=== PATIENT | female | born 1965 | race Caucasian/White ===

== ENCOUNTER → 2017-01-29 | Outpatient (CLI) | payer BC ==
[~2017-01-29] MED LIST: CVS20TAB PO; LEVO125T3 PO; LORTA5 PO; RANI150T PO; Z.0.BCPILL PO
--- NOTE | 2017-01-30 13:18 | TR ---
Date Performed: 01/29/2017 Time Performed: 12:24:36 DOCTOR: Ab Holder DRUG LIST: CLINICAL HISTORY: REASON FOR TEST: REASON FOR ENDING: OBSERVATION: CONCLUSION: Shun protocol completed. Stopped sec to reaching target heart rate and leg fatigue. Maximum JW=420 Target HR Achieved=86.0% Total Exercise Time=5:15. No reprod chest pain. No ectopy. S T depression inferior leads at peak with rapidly upsloping ST segments. Low voltage in anterior/later al leads. Good exercise tolerance. Normal bp response. ST segments normalized early in recovery. Low probability of ischemia. COMMENTS:
== END ==
LOC: HCAV 12:05
PROVIDERS: ATTEND Family Medicine
DX: R07.9 Chest pain, unspecified (principal)
CPT/HCPCS: 93017

== ENCOUNTER 2017-04-19 04:46 | Emergency (ER) | payer BC ==
[~2017-04-19] VITALS: Ht 162.6 cm; Wt 92.7 kg
[2017-04-19] MEDS ORDERED: GADODIAMIDE PF 287 MG/ML 20 ML VIAL (for RAD MRI) IVCONTRAST ONE (04:47)
[2017-04-19 04:56] VITALS: BP 131/73; PULSE 73; RESP 16; TEMP 98.2; O2SAT 97
[2017-04-19 05:15] VITALS: BP 116/69; PULSE 70; RESP 18; TEMP 98.2; O2SAT 96
[2017-04-19] MEDS ORDERED: LEVO50TA4 PO (05:15)
[2017-04-19] MEDS ORDERED: SODIUM CHLORIDE 0.9% FLUSH 10 ML FLUSH IVF PRN (05:45)
[2017-04-19 05:51] VITALS: RESP 18; O2SAT 97
[2017-04-19 05:52] LABS: AUTOMATED NEUTROPHIL # 6.2 TH/MM3 (1.8-7.7); BASOPHIL # 0.1 TH/MM3 (0-0.2); BASOPHIL % 0.9 % (0.0-2.0); EOSINOPHIL # 0.3 TH/MM3 (0-0.4); EOSINOPHIL % 3.2 % (0.0-4.0); HEMATOCRIT 39.6 % (35.0-46.0); HEMO FLAGS DIFF FINAL; LYMPH % 26.6 % (9.0-44.0); LYMPHOCYTE # 2.6 TH/MM3 (1.0-4.8); MEAN CELL VOLUME 86.7 FL (80.0-100.0); MEAN CORPUSCULAR HEMOGLOBIN 29.5 PG (27.0-34.0); MEAN CORPUSCULAR HGB CONC 34.1 % (32.0-36.0); MONO % 6.8 % (0.0-8.0); NEUT % 62.5 % (16.0-70.0); PLATELET COUNT 316 TH/MM3 (150-450); RED BLOOD COUNT 4.57 MIL/MM3 (4.00-5.30); RED CELL DISTRIBUTION WIDTH 12.2 % (11.6-17.2); WHITE BLOOD COUNT 9.9 TH/MM3 (4.0-11.0)
--- NOTE | 2017-04-19 05:57 | PD ---
HPI Chief Complaint: Headache Time Seen by Provider: 05:32 Travel History International Travel<30 days: No Contact w/Intl Traveler<30days: No Traveled to known affect area: No History of Present Illness HPI 52-year-old female presents to the emergency department by private transportation the care of her spouse for complaint of feeling jitteriness times one week and blurred and double vision with headache 3 days. Patient's had brief nausea but no vomiting. Patient's had no focal upper extremity or lower extremity numbness tingling or weakness. Head no ataxia of gait. Patient rates headache 5/10 intensity. Patient has taken Excedrin headache and ibuprofen without symptom relief. Patient recently underwent stress test that was reportedly "normal". Patient states she hasn't felt well since the stress test. Patient denies personal history of hypertension dyslipidemia diabetes tobaccoism or headaches. No reported family history premature onset heart disease. Patient does not report family history of aneurysm or CVA/TIA. Patient states that she was concerned that she was having a TIA prior to her stress test because she had numbness of the right side of the face that resolved spontaneously. Patient denies any peripheral vision loss. Patient's had no chest pain no shortness of breath no palpitations no sweats no vomiting and no referred neck jaw back shoulder or arm pain. Patient's had no recent injury or fall. Patient does not wear corrective lenses. Patient's had no recent febrile illness or respiratory illness. Patient states that she oftentimes feels jittery primarily at night when she is laying down and resting symptoms does not seem to be as prevalent when she is active or during the day. [facility] Past Medical History Narrative Medical Thyroid disease GERD cholecystectomy social alcohol use nursing notes reviewed Diminished Hearing: No GERD: Yes Immunizations Current: Yes Thyroid Disease: Yes Tetanus Vaccination: Unknown Influenza Vaccination: Yes ?: Unknown Menopausal: Yes Past Surgical History Section: Yes (X 2 IN 1989 AND 1990) Cholecystectomy: Yes (2014) Social History Alcohol Use: Yes (social) Tobacco Use: No Substance Use: No Allergies-Medications (Allergen,Severity, Reaction): Coded Allergies: No Known Allergies (Unverified , 04/19/17) Reported Meds & Prescriptions Reported Meds & Active Scripts Active Reported Levothyroxine (Levothyroxine Sodium) 50 Mcg Tab 50 Mcg PO DAILY Review of Systems Except as stated in HPI: all other systems reviewed are Neg General / Constitutional: No: Fever Eyes: Positive: Diploplia, Blurred Vision HENT: Positive: Headaches, No: Neck Pain Cardiovascular: No: Chest Pain or Discomfort, Palpitations, Diaphoresis, Syncope Respiratory: No: Shortness of Breath Gastrointestinal: Positive: Nausea, No: Vomiting, Abdominal Pain Genitourinary: No: Flank Pain Musculoskeletal: Positive: Weakness, No: Myalgias, Arthralgias Skin: No Rash Neurologic: Positive: Weakness Psychiatric: Positive: Anxiety Endocrine: No: Heat Intolerance Hematologic/Lymphatic: No: Easy Bruising Physical Exam Narrative GENERAL: Well-developed well-nourished female in no acute distress no respiratory distress SKIN: Warm and dry. HEAD: Atraumatic. Normocephalic. EYES: Pupils equal and round. Extraocular muscles intact. No papilledema. No scleral icterus. No injection or drainage. ENT: No nasal bleeding or discharge. Mucous membranes pink and moist. NECK: Trachea midline. No JVD. CARDIOVASCULAR: Regular rate and rhythm. RESPIRATORY: No accessory muscle use. Clear to auscultation. Breath sounds equal bilaterally. GASTROINTESTINAL: Abdomen soft, non-tender, nondistended. Hepatic and splenic margins not palpable. MUSCULOSKELETAL: Extremities without clubbing, cyanosis, or edema. No obvious deformities. NEUROLOGICAL: Awake and alert. No obvious cranial nerve deficits. Motor grossly within normal limits. Five out of 5 muscle strength in the arms and legs. Sensory exam intact. DTRs 2+ equal. No limb ataxia. No pronator drift. Normal speech. PSYCHIATRIC: Appropriate mood and affect; insight and judgment normal. Data Data Last Documented VS Vital Signs Date Time Temp Pulse Resp B/P (MAP) Pulse Ox O2 Delivery O2 Flow Rate FiO2 04/19/17 06:00 18 18 107/70 (82) 70 20 118/77 (91) 71 116/73 (87) 04/19/17 05:51 97 Room Air 04/19/17 05:15 98.2 Orders Orders Electrocardiogram (04/19/17 05:32) Prothrombin Time / Inr (Pt) (04/19/17 05:32) Act Partial Throm Time (Ptt) (04/19/17 05:32) Complete Blood Count With Diff (04/19/17 05:32) Basic Metabolic Panel (Bmp) (04/19/17 05:32) Creatine Kinase (Cpk) (04/19/17 05:32) Troponin I (04/19/17 05:32) Ct Brain W/O Iv Contrast(Rout) (04/19/17 05:32) Ecg Monitoring (04/19/17 05:32) Iv Access Insert/Monitor (04/19/17 05:32) Oximetry (04/19/17 05:32) Blood Glucose (04/19/17 05:32) Sodium Chloride 0.9% Flush (Ns Flush) (04/19/17 05:45) Orthostatic Vital Signs (04/19/17 05:32) Thyroid Stimulating Hormone (04/19/17 05:49) Mri Brain W&W/O Contrast (04/19/17 ) Mra Brain W/O Contrast (Cow) (04/19/17 ) Free Thyroxine (T4) (04/19/17 06:43) Ondansetron Inj (Zofran Inj) (04/19/17 07:00) Sodium Chlor 0.9% 1000 Ml Inj (Ns 1000 M (04/19/17 07:00) Hydromorphone Pf Inj (Dilaudid Pf Inj) (04/19/17 07:00) Protein Corrected Calcium(Pcc) (04/19/17 05:46) Labs Laboratory Tests Test 04/19/17 05:46 White Blood Count 9.9 TH/MM3 Red Blood Count 4.57 MIL/MM3 Hemoglobin 13.5 GM/DL Hematocrit 39.6 % Mean Corpuscular Volume 86.7 FL Mean Corpuscular Hemoglobin 29.5 PG Mean Corpuscular Hemoglobin Concent 34.1 % Red Cell Distribution Width 12.2 % Platelet Count 316 TH/MM3 Mean Platelet Volume 7.6 FL Neutrophils (%) (Auto) 62.5 % Lymphocytes (%) (Auto) 26.6 % Monocytes (%) (Auto) 6.8 % Eosinophils (%) (Auto) 3.2 % Basophils (%) (Auto) 0.9 % Neutrophils # (Auto) 6.2 TH/MM3 Lymphocytes # (Auto) 2.6 TH/MM3 Monocytes # (Auto) 0.7 TH/MM3 Eosinophils # (Auto) 0.3 TH/MM3 Basophils # (Auto) 0.1 TH/MM3 CBC Comment DIFF FINAL Differential Comment Prothrombin Time 10.0 SEC Prothromb Time International Ratio 0.9 RATIO Activated Partial Thromboplast Time 26.4 SEC Blood Urea Nitrogen 15 MG/DL Creatinine 0.80 MG/DL Random Glucose 88 MG/DL Total Protein 6.9 GM/DL Calcium Level 7.9 MG/DL Sodium Level 140 MEQ/L Potassium Level 4.1 MEQ/L Chloride Level 110 MEQ/L Carbon Dioxide Level 23.9 MEQ/L Anion Gap 6 MEQ/L Estimat Glomerular Filtration Rate 75 ML/MIN Protein Corrected Calcium 8.1 MG/DL Total Creatine Kinase 74 U/L Troponin I LESS THAN 0.02 NG/ML Thyroid Stimulating Hormone 3rd Gen 4.340 uIU/ML MDM Medical Decision Making Medical Screen Exam Complete: Yes Emergency Medical Condition: Yes Medical Record Reviewed: Yes Interpretation(s) EKG: Sinus rhythm rate 70 no acute injury pattern or ST elevation occasional PAC Differential Diagnosis headache, migraine, vertigo, CVA, TIA, thyroid dysfunction, mass, normal pressure hydrocephalus, diabetes Narrative Course IV access obtained specimens collected and sent for resulting EKG performed shows sinus rhythm rate [address] elevation or injury pattern noted rare PAC CBC basic metabolic panel and cardiac enzymes found to be in normal range except for calcium of 7.9 and also noted to have mildly elevated TSH with known history of hypothyroidism; protein corrected calcium ordered; CT brain noncontrast reveals no acute abnormality in view of patient's complaint of dizziness headache and visual disturbance/diplopia will proceed with MRI and MRA of the brain. Patient administered normal saline at 1 25 cc an hour as maintenance fluids along with Zofran 4 mg IV and Dilaudid 0.2 mg IV for complaint of 5/10 headache. @ 0700 care signed over to AM Physician, Mirta Anderson MD Apr 19, 2017 05:57
[2017-04-19 06:00] VITALS: BP_SYST 107; BP_SYST 116; BP_SYST 118; BP_DIAS 70; BP_DIAS 73; BP_DIAS 77; RESP 18; RESP 20
[2017-04-19 06:02] LABS: CHLORIDE 110 MEQ/L (98-107); POTASSIUM 4.1 MEQ/L (3.5-5.1); SODIUM (NA) 140 MEQ/L (136-145)
[2017-04-19 06:04] LABS: APTT (PATIENT) 26.4 SEC (24.3-30.1); INTERNATIONAL NORMALIZED RATIO 0.9 RATIO
[2017-04-19 06:05] LABS: ANION GAP 6 MEQ/L (5-15); BICARBONATE 23.9 MEQ/L (21.0-32.0); BLOOD UREA NITROGEN 15 MG/DL (7-18)
[2017-04-19 06:08] LABS: GLOMERULAR FILTRATION RATE 75 ML/MIN (>89)
[2017-04-19 06:17] LABS: CREATINE KINASE 74 U/L (26-192)
--- NOTE | 2017-04-19 06:39 | RADRPT ---
EXAM DATE/TIME: 04/19/2017 06:13 [facility] COMPARISON: No previous studies available for comparison. INDICATIONS : Blurred vision, dizziness,with headaches X 3days. RADIATION DOSE: 59.50 CTDIvol (mGy) MEDICAL HISTORY : None SURGICAL HISTORY : None. ENCOUNTER: Initial ACUITY: 3 days PAIN SCALE: 5/10 LOCATION: cranial TECHNIQUE: Multiple contiguous axial images were obtained of the head. Using automated exposure control and adj ustment of the mA and/or kV according to patient size, radiation dose was kept as low as reasonably a chievable to obtain optimal diagnostic quality images. DICOM format image data is available electro nically for review and comparison. FINDINGS: CEREBRUM: The ventricles are normal for age. No evidence of midline shift, mass lesion, hemorrhage or acute in farction. No extra-axial fluid collections are seen. POSTERIOR FOSSA: The cerebellum and brainstem are intact. The 4th ventricle is midline. The cerebellopontine angle i s unremarkable. EXTRACRANIAL: The visualized portion of the orbits is intact. SKULL: The calvaria is intact. No evidence of skull fracture. CONCLUSION: Negative noncontrast CT brain. Khang Garcia MD on April 19, 2017 at 6:32 Board Certified Radiologist. This report was verified electronically.
[2017-04-19] MEDS ORDERED: HYDROmorphone HCL PF 1 MG/ML VIAL IV PUSH ONE (07:00)
[2017-04-19] MEDS ORDERED: ONDANSETRON HCL 4 MG/2 ML VIAL IV PUSH ONE (07:00)
[2017-04-19] MEDS ORDERED: SODIUM CHLOR 0.9% 1000 ML INJ 1,000 ML IV SCH (07:00)
[2017-04-19 07:13] LABS: CALCIUM-PROTEIN CORRECTED 8.1 MG/DL (8.5-10.1)
--- NOTE | 2017-04-19 07:36 | PD ---
Physical Exam Date Seen by Provider: Apr 19, 2017 Data Data Last Documented VS Vital Signs Date Time Temp Pulse Resp B/P (MAP) Pulse Ox O2 Delivery O2 Flow Rate FiO2 04/19/17 07:43 18 04/19/17 06:00 18 107/70 (82) 70 118/77 (91) 71 116/73 (87) 04/19/17 05:51 97 Room Air 04/19/17 05:15 98.2 Orders Orders Electrocardiogram (04/19/17 05:32) Prothrombin Time / Inr (Pt) (04/19/17 05:32) Act Partial Throm Time (Ptt) (04/19/17 05:32) Complete Blood Count With Diff (04/19/17 05:32) Basic Metabolic Panel (Bmp) (04/19/17 05:32) Creatine Kinase (Cpk) (04/19/17 05:32) Troponin I (04/19/17 05:32) Ct Brain W/O Iv Contrast(Rout) (04/19/17 05:32) Ecg Monitoring (04/19/17 05:32) Iv Access Insert/Monitor (04/19/17 05:32) Oximetry (04/19/17 05:32) Blood Glucose (04/19/17 05:32) Sodium Chloride 0.9% Flush (Ns Flush) (04/19/17 05:45) Orthostatic Vital Signs (04/19/17 05:32) Thyroid Stimulating Hormone (04/19/17 05:49) Mri Brain W&W/O Contrast (04/19/17 ) Mra Brain W/O Contrast (Cow) (04/19/17 ) Free Thyroxine (T4) (04/19/17 06:43) Ondansetron Inj (Zofran Inj) (04/19/17 07:00) Sodium Chlor 0.9% 1000 Ml Inj (Ns 1000 M (04/19/17 07:00) Hydromorphone Pf Inj (Dilaudid Pf Inj) (04/19/17 07:00) Protein Corrected Calcium(Pcc) (04/19/17 05:46) Gadodiamide Pf Inj (Omniscan Pf Inj) (04/19/17 04:47) Labs Laboratory Tests Test 04/19/17 05:46 White Blood Count 9.9 TH/MM3 Red Blood Count 4.57 MIL/MM3 Hemoglobin 13.5 GM/DL Hematocrit 39.6 % Mean Corpuscular Volume 86.7 FL Mean Corpuscular Hemoglobin 29.5 PG Mean Corpuscular Hemoglobin Concent 34.1 % Red Cell Distribution Width 12.2 % Platelet Count 316 TH/MM3 Mean Platelet Volume 7.6 FL Neutrophils (%) (Auto) 62.5 % Lymphocytes (%) (Auto) 26.6 % Monocytes (%) (Auto) 6.8 % Eosinophils (%) (Auto) 3.2 % Basophils (%) (Auto) 0.9 % Neutrophils # (Auto) 6.2 TH/MM3 Lymphocytes # (Auto) 2.6 TH/MM3 Monocytes # (Auto) 0.7 TH/MM3 Eosinophils # (Auto) 0.3 TH/MM3 Basophils # (Auto) 0.1 TH/MM3 CBC Comment DIFF FINAL Differential Comment Prothrombin Time 10.0 SEC Prothromb Time International Ratio 0.9 RATIO Activated Partial Thromboplast Time 26.4 SEC Blood Urea Nitrogen 15 MG/DL Creatinine 0.80 MG/DL Random Glucose 88 MG/DL Total Protein 6.9 GM/DL Calcium Level 7.9 MG/DL Sodium Level 140 MEQ/L Potassium Level 4.1 MEQ/L Chloride Level 110 MEQ/L Carbon Dioxide Level 23.9 MEQ/L Anion Gap 6 MEQ/L Estimat Glomerular Filtration Rate 75 ML/MIN Protein Corrected Calcium 8.1 MG/DL Total Creatine Kinase 74 U/L Troponin I LESS THAN 0.02 NG/ML Thyroid Stimulating Hormone 3rd Gen 4.340 uIU/ML [facility] Medical Record Reviewed: Yes Supervised Visit with ANIRUDH: No Differential Diagnosis Differential includes thyroid dysfunction, TIA, DDI, diabetes, vertigo, migraine , CVA, electrolyte abnormality Narrative Course Please see previous provider's chart for full hpi and initial assessment, patient currently pending MRI/MRI of brain Patient is a 52-year-old female who presents to emergency room with complaints of an episode of jitteriness with episodes of blurred and double vision with headache for the past 3 days. Patient was reevaluated, reports that she is feeling much better at this time. Vital Signs Date Time Temp Pulse Resp B/P (MAP) Pulse Ox O2 Delivery O2 Flow Rate FiO2 04/19/17 06:00 18 18 107/70 (82) 70 20 118/77 (91) 71 116/73 (87) 04/19/17 05:51 18 97 Room Air 04/19/17 05:18 70 18 96 Room Air 04/19/17 05:15 98.2 70 18 116/69 (85) 96 04/19/17 04:56 98.2 73 16 131/73 (92) 97 Vital signs have been stable. Laboratory Tests Test 04/19/17 05:46 White Blood Count 9.9 TH/MM3 (4.0-11.0) Red Blood Count 4.57 MIL/MM3 (4.00-5.30) Hemoglobin 13.5 GM/DL (11.6-15.3) Hematocrit 39.6 % (35.0-46.0) Mean Corpuscular Volume 86.7 FL (80.0-100.0) Mean Corpuscular Hemoglobin 29.5 PG (27.0-34.0) Mean Corpuscular Hemoglobin Concent 34.1 % (32.0-36.0) Red Cell Distribution Width 12.2 % (11.6-17.2) Platelet Count 316 TH/MM3 (150-450) Mean Platelet Volume 7.6 FL (7.0-11.0) Neutrophils (%) (Auto) 62.5 % (16.0-70.0) Lymphocytes (%) (Auto) 26.6 % (9.0-44.0) Monocytes (%) (Auto) 6.8 % (0.0-8.0) Eosinophils (%) (Auto) 3.2 % (0.0-4.0) Basophils (%) (Auto) 0.9 % (0.0-2.0) Neutrophils # (Auto) 6.2 TH/MM3 (1.8-7.7) Lymphocytes # (Auto) 2.6 TH/MM3 (1.0-4.8) Monocytes # (Auto) 0.7 TH/MM3 (0-0.9) Eosinophils # (Auto) 0.3 TH/MM3 (0-0.4) Basophils # (Auto) 0.1 TH/MM3 (0-0.2) CBC Comment DIFF FINAL Differential Comment Prothrombin Time 10.0 SEC (9.8-11.6) Prothromb Time International Ratio 0.9 RATIO Activated Partial Thromboplast Time 26.4 SEC (24.3-30.1) Blood Urea Nitrogen 15 MG/DL (7-18) Creatinine 0.80 MG/DL (0.50-1.00) Random Glucose 88 MG/DL (74-106) Total Protein 6.9 GM/DL (6.4-8.2) Calcium Level 7.9 MG/DL (8.5-10.1) Sodium Level 140 MEQ/L (136-145) Potassium Level 4.1 MEQ/L (3.5-5.1) Chloride Level 110 MEQ/L (98-107) Carbon Dioxide Level 23.9 MEQ/L (21.0-32.0) Anion Gap 6 MEQ/L (5-15) Estimat Glomerular Filtration Rate 75 ML/MIN (>89) Protein Corrected Calcium 8.1 MG/DL (8.5-10.1) Total Creatine Kinase 74 U/L (26-192) Troponin I LESS THAN 0.02 NG/ML Thyroid Stimulating Hormone 3rd Gen 4.340 uIU/ML (0.358-3.740) Lab work benign except for TSH of 4.3 which is known to patient, calcium 7.9 with a corrected calcium of 8.1. Patient currently pending MRI/MRA of the brain Patient does have an appointment with assistant director of nursing tomorrow. Last Impressions Head CT 04/19/17 0532 Signed Impressions: Service Date/Time: Wednesday, April 19, 2017 06:13 - CONCLUSION: Negative noncontrast CT brain. Khang Garcia MD Head Magnetic Resonance Angiography 04/19/17 0000 Signed Impressions: Service Date/Time: Wednesday, April 19, 2017 08:27 - CONCLUSION: No intracranial vascular abnormality is identified. Aniket Mendoza MD Brain MRI 04/19/17 0000 Signed Impressions: Service Date/Time: Wednesday, April 19, 2017 08:27 - CONCLUSION: No acute intracranial abnormality is identified. There are no findings to indicate recent ischemia. Aniket Mendoza MD Patient feeling better at this time. She will follow up with assistant director of nursing tomorrow. She will also follow up with her primary care doctor. A copy of her studies were given to her at discharge. Signs and symptoms of when to return to ER was reviewed with her. She will return to ER as needed Diagnosis Primary Impression: Diplopia Additional Impression: Cephalgia Patient Instructions: General Instructions Additional Instruction: Please provide patient with a copy of her studies at discharge Please follow-up with your assistant director of nursing tomorrow as scheduled Please follow up with your primary care doctor in 2-3 days Return to the emergency room as needed Return to the emergency room if symptoms worsen or progress Disposition: 01 DISCHARGE HOME Condition: Stable Liv Baptiste DO Apr 19, 2017 07:36
--- NOTE | 2017-04-19 08:45 | RADRPT ---
EXAM DATE/TIME: 04/19/2017 08:27 [facility] COMPARISON: CT BRAIN W/O CONTRAST, April 19, 2017, 6:13. INDICATIONS : Dizziness. Headaches. Double vision. MEDICAL HISTORY : None. SURGICAL HISTORY : Cholecystectomy. section. ENCOUNTER: Initial ACUITY: 1 day PAIN SCORE: 3/10 LOCATION: cranial Please note a normal MRA of the brain does not entirely exclude the possibility of a small aneurysm, nor the possibility of distal intracranial vessel disease. TECHNIQUE: 3D time of flight MRA was performed. Source images, multiplanar STS MIP, and 3D volume MIP reconstru ctions were reviewed. FINDINGS: Anterior circulation: The internal carotid arteries demonstrate no abnormality or atherosclerotic change. A1 segments and m ore distal anterior cerebral arteries are symmetric and within normal limits. The middle cerebral art delaney branches demonstrate symmetric flow related enhancement. No aneurysm or high-grade stenosis is id entified. Posterior circulation: There are patent posterior cerebral arteries bilaterally. Vertebral arteries are codominant. The basi lar artery and posterior cerebral arteries demonstrate no significant stenosis or abnormality. No ane urysm is visualized. There are patent posterior communicating arteries bilaterally. CONCLUSION: No intracranial vascular abnormality is identified. Aniket Mendoza MD on April 19, 2017 at 8:41 Board Certified Radiologist. This report was verified electronically.
--- NOTE | 2017-04-19 08:57 | RADRPT ---
EXAM DATE/TIME: 04/19/2017 08:27 [facility] COMPARISON: CT BRAIN W/O CONTRAST, April 19, 2017, 6:13. INDICATIONS : Dizziness. Headaches. Double vision. CONTRAST: 18 cc Omniscan (gadodiamide) IV MEDICAL HISTORY : None. SURGICAL HISTORY : Cholecystectomy. section. ENCOUNTER: Initial ACUITY: 1 day PAIN SCORE: 3/10 LOCATION: cranial TECHNIQUE: Multiplanar, multisequence MRI of the brain was performed both prior to and following the administrat ion of paramagnetic contrast. FINDINGS: CEREBRUM: There is mild cerebral atrophy. Ventricles are normal. No evidence of midline shift, mass lesion, he morrhage or acute infarction. No extraaxial fluid collections are seen. The pituitary gland and sup rasellar cistern are normal in configuration. WHITE MATTER: No significant signal abnormalities are seen in the white matter. POSTERIOR FOSSA: The cerebellum and brainstem are intact. The 4th ventricle is midline. The cerebellopontine angle is unremarkable. The cerebellar tonsils are normal in position. DIFFUSION IMAGING: No focal areas of restricted diffusion are seen. No evidence of acute infarction. EXTRACRANIAL: The visualized portions of the orbits and paranasal sinuses are unremarkable. POST-CONTRAST: No abnormal areas of parenchymal or dural enhancement. No evidence of blood-brain barrier breakdown. CONCLUSION: No acute intracranial abnormality is identified. There are no findings to indicate recent ischemia. Aniket Mendoza MD on April 19, 2017 at 8:53 Board Certified Radiologist. This report was verified electronically.
[2017-04-19 09:34] VITALS: BP 124/73; PULSE 67; RESP 18; O2SAT 98
--- NOTE | 2017-04-19 13:49 | EKG ---
Date Performed: 04/19/2017 Time Performed: 05:46:52 PTAGE: 52 years EKG: Sinus rhythm WITH OCCASIONAL SUPRAVENTRICULAR PREMATURE COMPLEXES BORDERLINE ECG PREVIOUS TRACING : 11/05/2014 17.38 Since previous tracing, PACs are new; otherwise no signific ant change. DOCTOR: Alexis Goldsmith Interpretating Date/Time 04/19/2017 13:48:42
== END 2017-04-19 09:49 | disposition home or self-care (01) ==
LOC: PHED 04:46
DX: R51 Headache (principal); H53.2 Diplopia; R11.0 Nausea; K21.9 Gastro-esophageal reflux disease without esophagitis; E07.9 Disorder of thyroid, unspecified; R94.31 Abnormal electrocardiogram [ECG] [EKG]
CPT/HCPCS: 70450; 70544; 70553; 80048; 82550; 84155; 84439; 84443; 84484; 85025; 85610; 85730; 93005; 96361; 96374; 96375; 99285; A9579; J1170; J2405; J7030